=== PATIENT | female | born 1960 | race Caucasian/White ===

== ENCOUNTER 2023-05-07 18:09 | Emergency (ER) | payer BC ==
[~2023-05-07] VITALS: Ht 152.4 cm; Wt 77.6 kg
[2023-05-07 18:26] VITALS: BP 144/88; PULSE 78; RESP 18; TEMP 97.8; O2SAT 98
[2023-05-07] MEDS ORDERED: NAPR-1704 PO (19:17)
[2023-05-07 19:43] VITALS: BP 144/88; PULSE 78; RESP 18; TEMP 97.8; O2SAT 98
== END 2023-05-07 19:43 | disposition home or self-care (01) ==
LOC: MED 18:09
DX: S82.832A Other fracture of upper and lower end of left fibula, initial encounter for closed fracture (principal); Z79.1 Long term (current) use of non-steroidal anti-inflammatories (NSAID); X50.1XXA Overexertion from prolonged static or awkward postures, initial encounter; Y93.01 Activity, walking, marching and hiking; Y92.89 Other specified places as the place of occurrence of the external cause; Y99.8 Other external cause status
CPT/HCPCS: 29515; 73610; 99283